=== PATIENT | female | born 1990 | race Caucasian/White ===

== ENCOUNTER 2020-05-07 05:36 | Inpatient (IN) ==
[2020-05-07] MEDS ORDERED: Lidocaine 1% VIAL 10 MG/ML VIAL ONE (06:37)
[2020-05-07] MEDS ORDERED: Oxytocin 10 UNITS/ML 1 ML VIAL ONE (06:37)
[2020-05-07] MEDS ORDERED: Lactated Ringers 1000 ml BAG 1,000 ML IV ONE (06:52)
[2020-05-07] MEDS ORDERED: Lactated Ringers 1000 ml BAG 1,000 ML IV SCH ×2 (07:00→08:00)
[2020-05-07] MEDS ORDERED: Dibucaine 1% OINT 28.35 GM TUBE PR PRN (07:03)
[2020-05-07] MEDS ORDERED: Glycerin ADULT 2.4 gm SUPP PR PRN (07:03)
[2020-05-07] MEDS ORDERED: Witch Hazel PAD JAR TOPICAL PRN (07:03)
[2020-05-07 07:09] LABS: Urine Benzodiazepine Screen None Detected (None Detect); Urine Cannabinoids Screen None Detected (None Detect); Urine Opiates Screen None Detected (None Detect)
[2020-05-07 12:26] LABS: ABS Basophils 0.1 10^3/ul (0-0.2); ABS Eosinophils 0.1 10^3/ul (0-0.6); ABS Lymphocytes 2.9 10^3/ul (1.0-4.8); Hematocrit 38 % (35-47); Hemoglobin 12.7 g/dL (12.0-16.0); Lymphocyte % 23.9 %; Mean Corpuscular HGB Conc 33 g/dL (31-36); Mean Corpuscular Hemoglobin 30 pg (27-31); Mean Corpuscular Volume 90 fL (80-97); Mean Platelet Volume 12.4 fL (7.4-10.4); Nucleated Red Blood Cells % 0.1; Platelet Count 161 10^3/uL (150-450); Red Blood Count 4.28 10^6 /uL (3.70-4.87); Red Cell Distribution Width 14 % (10-15); White Blood Count 12.2 10^3/uL (3.5-10.8)
[2020-05-08 07:52] VITALS: BP 114/67
[2020-05-08 08:08] LABS: ABS Basophils 0.1 10^3/ul (0-0.2); ABS Eosinophils 0.1 10^3/ul (0-0.6); ABS Lymphocytes 3.7 10^3/ul (1.0-4.8); ABS Monocytes 0.7 10^3/ul (0-0.8); ABS Neutrophils 4.9 10^3/ul (1.5-7.7); Eosinophil % 1.4 %; Hematocrit 33 % (35-47); Hemoglobin 11.6 g/dL (12.0-16.0); Lymphocyte % 39.1 %; Mean Corpuscular HGB Conc 35 g/dL (31-36); Mean Corpuscular Hemoglobin 31 pg (27-31); Mean Corpuscular Volume 88 fL (80-97); Mean Platelet Volume 10.9 fL (7.4-10.4); Platelet Count 152 10^3/uL (150-450); Red Blood Count 3.75 10^6 /uL (3.70-4.87); Red Cell Distribution Width 14 % (10-15); White Blood Count 9.6 10^3/uL (3.5-10.8)
== END 2020-05-08 11:19 | disposition home or self-care (01) | DRG 560 ==
LOC: MCHOBOUT 05:36 → MCHOB 05:46
PROVIDERS: ADMIT Obstetrics & Gynecology; ATTEND Obstetrics & Gynecology